=== PATIENT | female | born 1990 | race Caucasian/White ===

== ENCOUNTER 2020-06-14 06:46 | Emergency (ER) | payer BC ==
[~2020-06-14] VITALS: Ht 165.1 cm; Wt 65.9 kg
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
--- NOTE | 2020-06-14 07:16 | NUR ---
CALLED AND GAVE HER POA JOSE WHO IS HER AUNT UPDATE INFORMED WE CAN'T TO MRI IN ER.
--- NOTE | 2020-06-14 07:26 | NUR ---
TO CT PER W/C
[2020-06-14] MEDS ORDERED: DULO30CA49 (07:41)
[2020-06-14] MEDS ORDERED: THYR48.7 (07:41)
[2020-06-14] MEDS ORDERED: BACL10TA (07:41)
[2020-06-14] MEDS ORDERED: THYR65TA5 (07:41)
[2020-06-14] MEDS ORDERED: GABAPENTIN (07:41)
[2020-06-14] MEDS ORDERED: HYDR12.56 (07:41)
[2020-06-14] MEDS ORDERED: BUTA1TAB9 (07:41)
[2020-06-14] MEDS ORDERED: NORE-71 (07:41)
[2020-06-14] MEDS ORDERED: AMIT50TA3 (07:41)
--- NOTE | 2020-06-14 07:41 | Diagnostic Imaging Report ---
EXAMINATION: CT head without contrast. TECHNIQUE: Multiple contiguous axial images were obtained through the brain without the use of intravenous contrast. All CT scans use one or more of the following dose optimizing techniques: automated exposure control, MA and/or KvP adjustment based on a patient size and exam type, or iterative reconstruction. HISTORY: Headache. COMPARISON: None available. FINDINGS: No large acute territorial ischemia, mass, or hemorrhage. No midline shift or mass effect. The ventricles, cortical sulci, and basilar cisterns are patent and unremarkable. The orbits are normal. Paranasal sinuses are normal. Mastoid air cells are clear. No soft tissue abnormality is seen. No osseus lesions or fractures are seen. IMPRESSION: 1. No large acute territorial ischemia, mass, or hemorrhage. Dictated by: Dictated on workstation # [id number]
--- NOTE | 2020-06-14 07:49 | NUR ---
CALLED AND GAVE DISCHARGE UPDATE TO JOSE MONROY AT [phone] INFORMD HER WE WOULD GIVE HER A COPY OF HER CT REPORT AND NEEDS TO SEE FAMILY DR. SHE STATED THAT SHE WOULD. AUNT REOPRTS THAT PATIENT WAS UPSET HOW SHE WAS TREATED AND THAT IT WAS GIVEING HER ANXIETY AND THAT IT WAS NOT THIS NURSE WHO SHE WAS UP SET WITH.
[2020-06-14 07:52] VITALS: BP 111/84
== END 2020-06-14 07:52 | disposition home or self-care (01) ==
LOC: EDUNIT# 06:46 → ER 06:51
DX: G89.29 Other chronic pain (principal); R51 Headache; Z87.820 Personal history of traumatic brain injury
CPT/HCPCS: 70450

== ENCOUNTER 2020-10-02 18:24 | Emergency (ER) | payer OTHER, BC ==
[~2020-10-02] VITALS: Ht 165 cm; Wt 68.0 kg
[~2020-10-02 18:24] MED LIST: AMIT50TA3; BACL10TA; BUTA1TAB9; DULO30CA49; GABAPENTIN; HYDR12.56; NORE-71; THYR48.7; THYR65TA5
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
[2020-10-02 18:56] LABS: BILIRUBIN,URINE NEGATIVE (NEGATIVE); CLARITY,URINE CLEAR; COLOR,URINE YELLOW; GLUCOSE, URINE (UA) NEGATIVE (NEGATIVE); KETONES,URINE NEGATIVE (NEGATIVE); LEUKOCYTE ESTERASE ,URINE TRACE (NEGATIVE); NITRITE,URINE NEGATIVE (NEGATIVE); PROTEIN,URINE NEGATIVE (NEGATIVE)
[2020-10-02 19:10] LABS: BACTERIA,URINE TRACE /HPF
[2020-10-02 19:29] LABS: AMPHETAMINE SCREEN, URINE NEGATIVE (NEGATIVE); BARBITURATE SCREEN URINE NEGATIVE (NEGATIVE); BENZODIAZEPINES SCREEN URINE NEGATIVE (NEGATIVE); CANNABINOID SCREEN, URINE NEGATIVE (NEGATIVE); COCAINE SCREEN URINE NEGATIVE (NEGATIVE); METHADONE STAT NEGATIVE (NEGATIVE); METHAMPHETAMINE SCREEN URINE S NEGATIVE (NEGATIVE); OPIATE SCREEN URINE NEGATIVE (NEGATIVE); OXYCODONE STAT NEGATIVE (NEGATIVE); PROPOXYPHENE STAT NEGATIVE (NEGATIVE); TRICYCLIC ANTIDEPRESSANTS SCRE POSITIVE (NEGATIVE)
[2020-10-02 19:30] LABS: BASOPHILS % (AUTO) 0 % (0-10); EOSINOPHILS # (AUTO) 0.2 10^3/uL (0.0-0.3); EOSINOPHILS % (AUTO) 2 % (0-10); HEMATOCRIT 44 % (35-52); HEMOGLOBIN 14.6 g/dL (11.5-16.0); LYMPHOCYTES # (AUTO) 2.3 10^3/uL (1.0-4.0); LYMPHOCYTES % (AUTO) 32 % (12-44); MEAN CORPUSCULAR HEMOGLOBIN 31 pg (25-34); MEAN CORPUSCULAR HGB CONC 33 g/dL (32-36); MEAN CORPUSCULAR VOLUME 93 fL (80-99); MEAN PLATELET VOLUME 8.8 fL (9.0-12.2); MONOCYTES # (AUTO) 0.5 10^3/uL (0.0-1.0); MONOCYTES % (AUTO) 7 % (0-12); NEUTROPHILS # (AUTO) 4.2 10^3/uL (1.8-7.8); NEUTROPHILS % (AUTO) 58 % (42-75); PLATELET COUNT 319 10^3/uL (130-400); WHITE BLOOD COUNT 7.3 10^3/uL (4.3-11.0)
[2020-10-02 19:41] LABS: INR 0.9 (0.8-1.4); PROTHROMBIN TIME PATIENT 12.8 SEC (12.2-14.7)
[2020-10-02 19:49] LABS: ALANINE AMINOTRANSFERASE 17 U/L (0-55); ALBUMIN 4.5 GM/DL (3.2-4.5); ALKALINE PHOSPHATASE 75 U/L (40-136); AMYLASE 82 U/L (25-125); BILIRUBIN,TOTAL 0.4 MG/DL (0.1-1.0); BUN/CREATININE RATIO 13; CALCIUM 9.5 MG/DL (8.5-10.1); CARBON DIOXIDE 21 MMOL/L (21-32); CHLORIDE 106 MMOL/L (98-107); CREATININE SERUM 0.83 MG/DL (0.60-1.30); GFR ESTIMATED > 60; GLUCOSE 88 MG/DL (70-105); LIPASE 23 U/L (8-78); POTASSIUM 3.8 MMOL/L (3.6-5.0); SODIUM 139 MMOL/L (135-145); TOTAL PROTEIN 7.4 GM/DL (6.4-8.2)
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
--- NOTE | 2020-10-02 20:02 | Diagnostic Imaging Report ---
EXAM: Pelvis and left hip radiographs. EXAM DATE: 10/02/2020. COMPARISON: None. TECHNIQUE: Single view of the pelvis with two views of the left hip. FINDINGS: No acute fracture, dislocation or destructive osseous process. Joint spaces are normal. The soft tissues are normal. IMPRESSION: No acute osseous abnormality of the pelvis or left hip. Dictated by: Dictated on workstation # [id number]
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
[2020-10-02] MEDS ORDERED: CYCL10TA9 PO (20:28)
[2020-10-02] MEDS ORDERED: MELO15TA14 PO (20:28)
[2020-10-02] MEDS ORDERED: RX-ONDANSETRON 4 MG ODT (ZOFRAN) PPK #4 PO STA (20:39)
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
[2020-10-02 20:45] VITALS: BP 129/96
--- NOTE | 2020-10-02 21:00 | NUR ---
PT CAME BACK TO REGISTRATION ASKING ABOUT HER MISSING NOSE RING. CT NOTIFIED AND THEY CHECKED IN THEIR DEPT, BUT DID NOT FIND A NOSE RING. MIRA FROM CT STATES PT WAS GIVEN CUP TO PLACE ALL JEWLERY PRIOR TO CT. ROOM 3 WHERE PT WAS AND ALL LINENS IN ROOM CHECKED AND NO NOSE RING FOUND.
== END 2020-10-02 20:46 | disposition home or self-care (01) ==
LOC: EDUNIT# 18:24 → ER 18:25
DX: S63.92XA Sprain of unspecified part of left wrist and hand, initial encounter (principal); S30.1XXA Contusion of abdominal wall, initial encounter; S70.02XA Contusion of left hip, initial encounter; R51.9 Headache, unspecified; R40.2410 Glasgow coma scale score 13-15, unspecified time; Z91.041 Radiographic dye allergy status; V89.2XXA Person injured in unspecified motor-vehicle accident, traffic, initial encounter
CPT/HCPCS: 70450; 71250; 72125; 73130; 73502; 74176; 80053; 80306; 81000; 82150; 83690; 84703; 85025; 85610; 85730; 99284; G0480; 36415; 80320

== ENCOUNTER → 2021-04-28 | Outpatient (CLI) | payer BC, OTHER ==
[~2021-04-28] MED LIST changes: +BUTA-235; -BUTA1TAB9; +CYCL10TA9 PO; +MELO15TA14 PO
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
== END ==
LOC: RAD 10:04
PROVIDERS: ATTEND Nurse Practitioner Family
DX: L03.211 Cellulitis of face (principal)
CPT/HCPCS: 70486

== ENCOUNTER → 2021-06-29 | Outpatient (CLI) | payer OTHER ==
[2021-07-01 07:03] LABS: RAGWEED RAST <0.10 kU/L (0.00-0.09)
== END ==
LOC: LAB 18:41
PROVIDERS: ATTEND Otolaryngology Otolaryngology/Facial Plastic Surgery
DX: Z51.11 Encounter for antineoplastic chemotherapy (principal)
CPT/HCPCS: 36415; 86003

== ENCOUNTER 2021-09-06 12:50 | Emergency (ER) | payer OTHER ==
[~2021-09-06] VITALS: Ht 157 cm; Wt 63.6 kg
[2021-09-06] MEDS ORDERED: PROCHLORPERAZINE 10 MG TAB (COMPAZINE) PO ONE (13:15)
[2021-09-06] MEDS ORDERED: diphenhydrAMINE 25 MG TAB (BENADRYL) PO ONE (13:15)
[2021-09-06] MEDS ORDERED: KETOROLAC 60 MG/2 ML VIAL IM ONE (13:15)
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
[2021-09-06] MEDS ORDERED: CATHETER FLUSH 10 ML SYR IV PRN (13:45)
[2021-09-06] MEDS ORDERED: NS 100 ML (IVPB) BAG IV ONE (13:45)
[2021-09-06] MEDS ORDERED: IOHEXOL 350 MG/ML 100 ML (OMNIPAQUE 350) VIAL IV ONE (13:45)
[2021-09-06] MEDS ORDERED: HOLD METFORMIN - RECEIVED CONTRAST 20 ML VIAL IV SCH (13:45)
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
[2021-09-06 14:34] VITALS: BP 115/70
== END 2021-09-06 14:34 | disposition home or self-care (01) ==
LOC: EDUNIT# 12:50 → ER 12:54
DX: S06.0X0A Concussion without loss of consciousness, initial encounter (principal); F41.9 Anxiety disorder, unspecified; F32.9 Major depressive disorder, single episode, unspecified; Z79.899 Other long term (current) drug therapy; V89.2XXA Person injured in unspecified motor-vehicle accident, traffic, initial encounter
CPT/HCPCS: 70450